=== PATIENT | female | born 1980 | race Caucasian/White ===

== ENCOUNTER 2016-11-06 15:32 | Emergency (ER) | payer MEDICAID ==
[~2016-11-06] VITALS: Ht 139.7 cm; Wt 61.7 kg
[2016-11-06 15:53] VITALS: BP 134/84
[2016-11-06 19:41] LABS: HEMATOCRIT 49.5 % (36-48); MEAN CORPUSCULAR HEMOGLOBIN 28 pg (27-31); MEAN CORPUSCULAR HGB CONC 32 g/dL (33-37); MEAN CORPUSCULAR VOLUME 88 fL (80-94); PLATELET COUNT (AUTO) 273 K/uL (140-450); RED BLOOD CELL COUNT(AUTO) 5.63 MIL/uL (4.20-5.40); WHITE BLOOD COUNT (AUTO) 5.2 K/uL (4.8-10.8)
[2016-11-06 19:54] LABS: ANION GAP 15.7 (8-16); CALCIUM 9.2 mg/dL (8.5-10.1); CARBON DIOXIDE 22.5 mmol/L (21-32); CREATININE 0.7 mg/dL (0.6-1.3); POTASSIUM 3.2 mmol/L (3.5-5.1)
[2016-11-06 19:57] LABS: BAND % (MANUAL) 5 % (0-8); EOSINOPHILS % (MANUAL) 1 % (0-4); LYMPHOCYTES % (MANUAL) 17 % (20-46); MONOCYTES % (MANUAL) 10 % (5-12); NEUTROPHILS % (MANUAL) 67 (43-65); PLATELET ESTIMATE ADEQUATE
[2016-11-06 20:02] LABS: TOTAL BILIRUBIN 0.7 mg/dL (0.0-1.0); TOTAL PROTEIN, SERUM 8.7 g/dL (6.4-8.2)
[2016-11-06 20:05] LABS: INR 1.1 (0.8-1.2); PARTIAL THROMBOPLASTIN TIME 26.4 secs (22-35.6); PROTHROMBIN TIME 10.2 secs (10.8-13.4)
[2016-11-06] MEDS: NACL 0.9% 500 ML IV ONE (20:35)
[2016-11-06] MEDS: ONDANSETRON 4 MG/2 ML VIAL IVP ONE (20:36)
[2016-11-06] MEDS: LEVOFLOXACIN 500 MG TAB PO ONE (20:36)
[2016-11-06] MEDS: POTASSIUM CHLORIDE 10 MEQ TABER PO ONE (20:36)
[2016-11-06 21:10] VITALS: BP 129/79
== END 2016-11-06 21:10 | disposition home or self-care (01) ==
LOC: MED 15:32
DX: A08.4 Viral intestinal infection, unspecified (principal)
CPT/HCPCS: 36415; 80053; 81002; 81025; 85025; 85610; 85730; 96361; 96374; 99284; J2405; J7030